=== PATIENT | female | born 1980 | race Two or more races ===

== ENCOUNTER 2016-12-01 10:48 | Emergency (ER) | payer MEDICAID ==
--- NOTE | 2016-12-01 11:04 | EDPHY ---
H & P Stated Complaint: rlq/r flank pain x 1 week worse today/nausea Time Seen by Provider: 12/01/16 10:56 HPI/ROS: CHIEF COMPLAINT: Right lower abdominal and right pelvic pain x1 week HISTORY OF PRESENT ILLNESS: 35-year-old female with remote history of left ovarian torsion and oophorectomy 7 years ago in [place], no other abdominal surgeries, complaining of 7 days of right lower abdominal pain , right lower back pain with associated nausea. Reproducible and exacerbated with palpation. No vomiting. No urinary abnormality such as dysuria, hematuria, increased frequency. No dyspareunia. No abnormal vaginal bleeding or discharge. No rash. No trauma. No dizziness. Last oral intake was a sausage biscuit at 9:00 a.m. today PRIMARY CARE PROVIDER: Reg Shannon REVIEW OF SYSTEMS: A ten point review of systems was performed and is negative with the exception of the items mentioned in the HPI PAST MEDICAL & SURGICAL HISTORY: 2009 left ovarian torsion with oophorectomy [place] SOCIAL HISTORY: nonsmoker PHYSICAL EXAM (Prior to examination, patient consented to physical exam, hands were washed and my usual and customary physical exam procedures followed) 1) GENERAL: Well-developed, well-nourished, alert and oriented. Appears uncomfortable 2) HEAD: Normocephalic, atraumatic 3) HEENT: Pupils equal, round, reactive to light bilaterally. Sclera anicteric. Dry mucous membranes 4) NECK: Full range of motion, no meningeal signs. 5) LUNGS: Clear auscultation bilaterally 6) HEART: Regular rate and rhythm, no murmur, no heave, no gallop. 7) ABDOMEN: guarding right lower quadrant, positive McBurney's, negative Kilgore' s, negative Rovsing's, 8) MUSCULOSKELETAL: No peripheral edema or discoloration. 9) BACK: No CVA tenderness. 10) SKIN: No rash, no petechiae. DIFFERENTIAL DIAGNOSIS: My differential diagnosis includes, but is not limited to, acute appendicitis, acute cholecystitis, bowel obstruction, acute pancreatitis, ovarian torsion, ectopic , gastritis and urinary tract infection. The patient understands that this diagnosis is provisional and can never be 100% accurate. This is a partial list of diagnoses considered. These considerations are based on history, physical exam, past history and reassessment. - Personal History LMP (Females 10-55): 8-14 Days Ago Current Tetanus/Diphtheria Vaccine: No - Medical/Surgical History Hx Asthma: No Hx Chronic Respiratory Disease: No Hx Diabetes: No Hx Cardiac Disease: No Hx Renal Disease: No Hx Cirrhosis: No Hx Alcoholism: No Hx HIV/AIDS: No Hx Splenectomy or Spleen Trauma: No Other PMH: l oopherectomy - Social History Smoking Status: Current every day smoker Constitutional: Initial Vital Signs Temperature (C) 36.4 C 12/01/16 10:52 Heart Rate 80 12/01/16 10:52 Respiratory Rate 17 12/01/16 10:52 Blood Pressure 98/78 L 12/01/16 10:52 O2 Sat (%) 96 12/01/16 10:52 O2 Delivery Mode Room Air Allergies/Adverse Reactions: No Known Allergies Allergy (Unverified 12/01/16 10:51) Home Medications: Medication Instructions Recorded Citalopram 12/01/16 Hydrocodone/APAP 5/325 [[place] 1 tab PO Q6 PRN #5 tab 12/01/16 5/325 (RX)] Ondansetron Odt [Zofran Odt] 4 mg PO Q4PRN PRN #10 tab 12/01/16 Medical Decision Making - Diagnostics Imaging: Imaging Impressions Pelvic/Renal Ultrasound 12/01/16 11:01 Impression: 1. Tiny cyst along the margin of the endometrial stripe posteriorly that could represent a small polyp or focus of adenomyosis. The uterus is otherwise normal in appearance. 2. Normal-appearing right ovary with small follicles and normal color-flow Doppler pattern. 3. Negative ultrasound of the right lower quadrant. However, the appendix was not positively identified. Findings were discussed by telephone with Flako Cantu PA-C at 1227 hrs. Abdomen Ultrasound 12/01/16 11:02 Impression: 1. Tiny cyst along the margin of the endometrial stripe posteriorly that could represent a small polyp or focus of adenomyosis. The uterus is otherwise normal in appearance. 2. Normal-appearing right ovary with small follicles and normal color-flow Doppler pattern. 3. Negative ultrasound of the right lower quadrant. However, the appendix was not positively identified. Findings were discussed by telephone with Flako Cantu PA-C at [address] 12/01/16 12:36 Impression: 1. No acute findings in the abdomen or pelvis. 2. Degenerative changes sacroiliac joints. 3. Additional findings as above. Findings discussed with Da Cantu PA-C, on 12/01/2016 at 1308 hours. Images reviewed by myself ED Course/Re-evaluation: 11:08 a.m.: Patient will be given IV fluids for volume depletion and further evaluated. 12:35 p.m.: Patient re-evaluated. Discussed her imaging studies showing normal flow to the right ovary. Nonvisualized appendix. Re-evaluated the patient she remains focally tender McBurney's point. Plan will be CT imaging. Indications risks benefits discussed with patient she verbalizes consent. 1:30 p.m.: Re-evaluation, she is resting comfortably. She remains tender at McBurney's point however appears significantly improved. We discussed her imaging showing normal appearing appendix. Discussed possibility of early appendicitis. At this time I think she can be discharged however recommended 12 hour recheck in the emergency department. She is agreeable with this plan. Usual customary abdominal precautions instructions provided. Discussed case with Dr Jon in ER. - Data Points Laboratory Results: Laboratory Results 12/01/16 11:11 12/01/16 11:11 12/01/16 12/01/16 12/01/16 12:35 11:11 11:11 WBC RBC Hgb Hct MCV MCH MCHC RDW Plt Count MPV Neut % (Auto) Lymph % (Auto) [place] % (Auto) Eos % (Auto) Baso % (Auto) Nucleat RBC Rel Count Absolute Neuts (auto) Absolute Lymphs (auto) Absolute Monos (auto) Absolute Eos (auto) Absolute Basos (auto) Absolute Nucleated RBC Immature Gran % Immature Gran # Sodium 140 mEq/L mEq/L (134-144) Potassium 4.5 mEq/L mEq/L (3.5-5.2) Chloride 105 mEq/L mEq/L (97-110) Carbon Dioxide 22 mEq/l mEq/l (22-31) Anion Gap 13 mEq/L mEq/L (8-16) BUN 17 mg/dL mg/dL (7-23) Creatinine 0.7 mg/dL mg/dL (0.6-1.0) Estimated GFR > 60 Glucose 88 mg/dL mg/dL (70-100) Calcium 9.8 mg/dL mg/dL (8.5-10.4) Total Bilirubin 0.6 mg/dL mg/dL (0.1-1.4) Conjugated Bilirubin 0.4 mg/dL mg/dL (0.0-0.5) Unconjugated Bilirubin 0.2 mg/dL mg/dL (0.0-1.1) AST 29 IU/L IU/L (14-46) ALT 34 IU/L IU/L (9-52) Alkaline Phosphatase 58 IU/L IU/L (38-126) Total Protein 8.4 g/dL H g/dL (6.3-8.2) Albumin 4.8 g/dL g/dL (3.5-5.0) Lipase 117.0 IU/L IU/L (23-300) Beta HCG, Qual NEGATIVE Urine Color YELLOW Urine Appearance CLEAR Urine pH 7.0 (5.0-7.5) Ur Specific [place] 1.019 (1.002-1.030) Urine Protein NEGATIVE (NEGATIVE) Urine Ketones NEGATIVE (NEGATIVE) Urine Blood 2+ H (NEGATIVE) Urine Nitrate NEGATIVE (NEGATIVE) Urine Bilirubin NEGATIVE (NEGATIVE) Urine Urobilinogen NEGATIVE EU EU (0.2-1.0) Ur Leukocyte Esterase NEGATIVE (NEGATIVE) Urine RBC 15-25 /hpf H /hpf (0-3) Urine WBC 1-3 /hpf /hpf (0-3) Ur Epithelial Cells TRACE /lpf /lpf (NONE-1+) Urine Mucus TRACE /lpf /lpf (NONE-1+) Urine Glucose NEGATIVE (NEGATIVE) 12/01/16 11:11 WBC 6.29 10^3/uL 10^3/uL (3.80-9.50) RBC 4.87 10^6/uL 10^6/uL (4.18-5.33) Hgb 13.6 g/dL g/dL (12.6-16.3) Hct 41.0 % % (38.0-47.0) MCV 84.2 fL fL (81.5-99.8) MCH 27.9 pg pg (27.9-34.1) MCHC 33.2 g/dL g/dL (32.4-36.7) RDW 15.5 % H % (11.5-15.2) Plt Count 262 10^3/uL 10^3/uL (150-400) MPV 11.7 fL fL (8.7-11.7) Neut % (Auto) 57.5 % % (39.3-74.2) Lymph % (Auto) 32.8 % % (15.0-45.0) [place] % (Auto) 6.5 % % (4.5-13.0) Eos % (Auto) 2.4 % % (0.6-7.6) Baso % (Auto) 0.5 % % (0.3-1.7) Nucleat RBC Rel Count 0.0 % % (0.0-0.2) Absolute Neuts (auto) 3.62 10^3/uL 10^3/uL (1.70-6.50) Absolute Lymphs (auto) 2.06 10^3/uL 10^3/uL (1.00-3.00) Absolute Monos (auto) 0.41 10^3/uL 10^3/uL (0.30-0.80) Absolute Eos (auto) 0.15 10^3/uL 10^3/uL (0.03-0.40) Absolute Basos (auto) 0.03 10^3/uL 10^3/uL (0.02-0.10) Absolute Nucleated RBC 0.00 10^3/uL 10^3/uL (0-0.01) Immature Gran % 0.3 % % (0.0-1.1) Immature Gran # 0.02 10^3/uL 10^3/uL (0.00-0.10) Sodium Potassium Chloride Carbon Dioxide Anion Gap BUN Creatinine Estimated GFR Glucose Calcium Total Bilirubin Conjugated Bilirubin Unconjugated Bilirubin AST ALT Alkaline Phosphatase Total Protein Albumin Lipase Beta HCG, Qual Urine Color Urine Appearance Urine pH Ur Specific [place] Urine Protein Urine Ketones Urine Blood Urine Nitrate Urine Bilirubin Urine Urobilinogen Ur Leukocyte Esterase Urine RBC Urine WBC Ur Epithelial Cells Urine Mucus Urine Glucose Medications Given: Discontinued Medications Sodium Chloride (Ns) 1,000 mls @ 0 mls/hr IV ONCE ONE PRN Reason: Wide Open Stop: 12/01/16 11:08 Last Admin: 12/01/16 11:30 Dose: 1,000 mls Ketorolac Tromethamine (Toradol) 30 mg IVP EDNOW ONE Stop: 12/01/16 11:08 Last Admin: 12/01/16 11:59 Dose: 30 mg Ondansetron HCl (Zofran) 4 mg IVP EDNOW ONE Stop: 12/01/16 11:08 Last Admin: 12/01/16 11:59 Dose: 4 mg Departure - Departure Disposition: Home, Routine, Self-Care Clinical Impression: Abdominal pain Qualifiers: Abdominal location: right lower quadrant Qualified Code(s): R10.31 - Right lower quadrant pain Condition: Good Instructions: Acute Abdominal Pain (ED) Additional Instructions: Seek immediate medical attention if you develop new or worsening symptoms, if you develop fevers, chills, inability to tolerate oral intake or any other symptoms that concerns you. Recommend you for return to the emergency department in 12 hours for a recheck. Return to the ER sooner if you develop new or worsening symptoms. Referrals: return, to the ER in 12 hours for a recheck [Other] - As per Instructions Prescriptions: Hydrocodone/APAP 5/325 [[place] 5/325 (RX)] 1 tab PO Q6 PRN #5 tab PRN Reason: Pain, Severe Ondansetron Odt [Zofran Odt] 4 mg PO Q4PRN PRN #10 tab PRN Reason: Nausea
[2016-12-01] MEDS ORDERED: KETOROLAC 30 MG/1 ML SDV IVP ONE (11:07)
[2016-12-01] MEDS ORDERED: NS 1,000 ML IV ONE (11:07)
[2016-12-01] MEDS ORDERED: ONDANSETRON 4 MG/2 ML VIAL IVP ONE (11:07)
[2016-12-01 11:23] LABS: % IMMATURE GRANULYOCYTES 0.3 % (0.0-1.1); ABSOLUTE IMMATURE GRANULOCYTES 0.02 10^3/uL (0.00-0.10); ADD DIFF? NO; ADD MORPH? NO; ADD SCAN? NO; ATYPICAL LYMPHOCYTE FLAG 10 (0-99); FRAGMENT RBC FLAG 0 (0-99); HEMOGLOBIN 13.6 g/dL (12.6-16.3); LEFT SHIFT FLG 0 (0-99); LIPEMIA HEMOLYSIS FLAG 80 (0-99); MEAN CELL HEMOGLOBIN 27.9 pg (27.9-34.1); MEAN CELL HEMOGLOBIN CONCENTR. 33.2 g/dL (32.4-36.7); MEAN CELL VOLUME 84.2 fL (81.5-99.8); MEAN PLATELET VOLUME 11.7 fL (8.7-11.7); PLATELET CLUMPS FLAG 0 (0-99); PLATELET COUNT 262 10^3/uL (150-400); RED BLOOD CELL COUNT 4.87 10^6/uL (4.18-5.33); RED CELL DISTRIBUTION WIDTH 15.5 % (11.5-15.2)
[2016-12-01 11:34] LABS: ALANINE AMINOTRANSFERASE 34 IU/L (9-52); ALBUMIN 4.8 g/dL (3.5-5.0); ALKALINE PHOSPHATASE 58 IU/L (38-126); ANION GAP 13 mEq/L (8-16); ASPARTATE AMINOTRANSFERASE 29 IU/L (14-46); BILIRUBIN,TOTAL 0.6 mg/dL (0.1-1.4); BILIRUBIN-CONJUGATED 0.4 mg/dL (0.0-0.5); BILIRUBIN-UNCONJUGATED 0.2 mg/dL (0.0-1.1); CALCIUM 9.8 mg/dL (8.5-10.4); CARBON DIOXIDE 22 mEq/l (22-31); CHLORIDE 105 mEq/L (97-110); CREATININE 0.7 mg/dL (0.6-1.0); GLOMERULAR FILTRATION RATE > 60; GLUCOSE 88 mg/dL (70-100); POTASSIUM 4.5 mEq/L (3.5-5.2); SODIUM 140 mEq/L (134-144); TOTAL PROTEIN 8.4 g/dL (6.3-8.2)
[2016-12-01] MEDS ORDERED: IOPAMIDOL (ISOVUE-300) 100 ML BTL IV ONE (12:43)
[2016-12-01 12:45] LABS: COLOR YELLOW; LEUKOCYTE ESTERASE,URINE NEGATIVE (NEGATIVE); NITRITE,URINE NEGATIVE (NEGATIVE)
[2016-12-01 12:48] LABS: MUCUS TRACE /lpf (NONE-1+); RBC,URINE 15-25 /hpf (0-3)
[2016-12-01 13:24] VITALS: RESP 16; O2SAT 98
[2016-12-01 14:01] VITALS: BP 104/72; PULSE 76; TEMP 97.7
== END 2016-12-01 14:01 | disposition home or self-care (01) ==
DX: R10.31 Right lower quadrant pain (principal); F17.200 Nicotine dependence, unspecified, uncomplicated
CPT/HCPCS: 96374; J1885; J2405; Q9967

== ENCOUNTER 2016-12-05 11:28 | Emergency (ER) | payer MEDICAID ==
[2016-12-05 11:39] VITALS: RESP 18; TEMP 98.1
[2016-12-05 12:17] LABS: % IMMATURE GRANULYOCYTES 0.2 % (0.0-1.1); ABSOLUTE IMMATURE GRANULOCYTES 0.01 10^3/uL (0.00-0.10); ADD DIFF? NO; ADD MORPH? NO; ADD SCAN? NO; ATYPICAL LYMPHOCYTE FLAG 10 (0-99); FRAGMENT RBC FLAG 0 (0-99); HEMATOCRIT 41.9 % (38.0-47.0); HEMOGLOBIN 13.6 g/dL (12.6-16.3); LEFT SHIFT FLG 0 (0-99); LIPEMIA HEMOLYSIS FLAG 80 (0-99); MEAN CELL HEMOGLOBIN 27.3 pg (27.9-34.1); MEAN CELL HEMOGLOBIN CONCENTR. 32.5 g/dL (32.4-36.7); MEAN CELL VOLUME 84.1 fL (81.5-99.8); MEAN PLATELET VOLUME 11.8 fL (8.7-11.7); PLATELET CLUMPS FLAG 0 (0-99); PLATELET COUNT 262 10^3/uL (150-400); RED BLOOD CELL COUNT 4.98 10^6/uL (4.18-5.33); RED CELL DISTRIBUTION WIDTH 15.2 % (11.5-15.2)
[2016-12-05 12:28] LABS: ALANINE AMINOTRANSFERASE 48 IU/L (9-52); ALBUMIN 4.9 g/dL (3.5-5.0); ALKALINE PHOSPHATASE 66 IU/L (38-126); ANION GAP 11 mEq/L (8-16); ASPARTATE AMINOTRANSFERASE 37 IU/L (14-46); BILIRUBIN,TOTAL 0.6 mg/dL (0.1-1.4); BILIRUBIN-CONJUGATED 0.5 mg/dL (0.0-0.5); BILIRUBIN-UNCONJUGATED 0.1 mg/dL (0.0-1.1); CALCIUM 9.9 mg/dL (8.5-10.4); CARBON DIOXIDE 21 mEq/l (22-31); CHLORIDE 107 mEq/L (97-110); CREATININE 0.7 mg/dL (0.6-1.0); GLOMERULAR FILTRATION RATE > 60; GLUCOSE 88 mg/dL (70-100); POTASSIUM 4.7 mEq/L (3.5-5.2); SODIUM 139 mEq/L (134-144); TOTAL PROTEIN 8.2 g/dL (6.3-8.2)
[2016-12-05] MEDS ORDERED: NS 1,000 ML IV ONE (12:35)
[2016-12-05] MEDS ORDERED: ONDANSETRON 4 MG/2 ML VIAL IVP ONE (12:35)
[2016-12-05] MEDS ORDERED: KETOROLAC 30 MG/1 ML SDV IVP ONE (12:35)
--- NOTE | 2016-12-05 12:38 | EDPHY ---
H & P Time Seen by Provider: 12/05/16 11:40 HPI/ROS: CHIEF COMPLAINT: Abdominal pain, vomiting HISTORY OF PRESENT ILLNESS: 35-year-old female presents to the emergency department with right lower quadrant abdominal pain that has been persistent since Sunday. She was seen in the emergency department on Sunday, December 01, 2016 , with right lower quadrant abdominal pain. She had a pelvic ultrasound and a limited abdominal ultrasound that was fairly unremarkable. She has CT scan of the abdomen and pelvis which revealed a normal appendix. Afebrile. She however has felt very sweaty and nauseous and this morning she began vomiting. No urinary symptoms. Last menstrual period was 2 and half weeks ago and she denies . She has had a previous tubal ligation. No back pain. REVIEW OF SYSTEMS: Constitutional: No fever, no chills. Eyes: No double or blurry vision. ENT: No sore throat. Respiratory: No cough, no shortness of breath. Cardiac: No chest pain. Gastrointestinal: Abdominal pain as above. No vomiting or diarrhea Genitourinary: No dysuria. Musculoskeletal: No neck or back pain. Skin: No rashes. Neurological: No headache. Past Medical/Surgical History: Tubal ligation, left ovary removal Social History: and lives in [place]. She moved here recently from [place] Smoking Status: Current every day smoker Physical Exam: General Appearance: Alert, no distress. Afebrile. No apparent distress. Eyes: Pupils equal and round. Extraocular motions are all intact. ENT: Mouth: Mucous membranes moist. Respiratory: No wheezing, rhonchi, or rales, lungs are clear to auscultation. Cardiovascular: Regular rate and rhythm. Gastrointestinal: Abdomen is soft. Tenderness with palpation especially the right lower quadrant as well as in the right upper quadrant. There is no rebound, guarding or masses noted. No CVA tenderness bilaterally. Neurological: Alert and oriented x 3, cranial nerves II through XII grossly intact Skin: Warm and dry, no rashes. Musculoskeletal: Nontender to palpate along the cervical, thoracic or lumbar spine. Neck is supple. Extremities: Full range of motion and no peripheral edema. Psychiatric: Patient is oriented X 3, there is no agitation. Constitutional: Initial Vital Signs Temperature (C) 36.7 C 12/05/16 11:37 Heart Rate 65 12/05/16 11:37 Respiratory Rate 18 12/05/16 11:37 Blood Pressure 92/59 L 12/05/16 11:37 O2 Sat (%) 97 12/05/16 11:37 O2 Delivery Mode Room Air Allergies/Adverse Reactions: No Known Allergies Allergy (Verified 12/05/16 11:35) Home Medications: Medication Instructions Recorded Citalopram 12/01/16 Hydrocodone/APAP 5/325 [[place] 1 tab PO Q6 PRN #5 tab 12/01/16 5/325 (RX)] Ondansetron Odt [Zofran Odt] 4 mg PO Q4PRN PRN #10 tab 12/01/16 Medical Decision Making - Diagnostics Imaging: Imaging Impressions Abdomen/Pelvis Ultrasound 12/05/16 13:57 Impression: 1. Normal renal ultrasound 2. Normal-appearing bladder. These findings were discussed by telephone with Brit Bell PA-C at 1547 hrs. ED Course/Re-evaluation: 35-year-old female presents to the emergency department with right-sided abdominal pain. The patient was seen in the emergency department 4 days ago and had a normal pelvic ultrasound and abdominal ultrasound. Normal appearing appendix noted on CT scan. The patient returns with persisting pain although it has improved. Laboratory studies reveal normal white blood cell count. Chemistries including liver function tests and lipase are all within normal limits. Urinalysis reveals 2+ blood 10-15 red blood cells noted on microscopic exam. Reviewing her laboratory studies from her previous visit reveals hematuria in her urine from the specimen on Sunday as well. Her last menstrual period was 2 and half weeks ago and the patient is not . The case was discussed with Dr. Denise Mckeon. I do not think repeat CT imaging of the abdomen and pelvis is indicated since they saw a normal appendix. The patient's pain is better although still persisting. I did discuss the pros and cons of CT imaging of her abdomen and pelvis including radiation exposure and the patient declined CT scan. The patient was given 30 mg of Toradol IV, 4 mg of Zofran IV with some relief. Patient was then given 0.5 mg of Dilaudid IV. Renal ultrasound is pending. Renal ultrasound is normal. The patient was re-evaluated at 3:50 p.m. and she is feeling better. She is comfortable being discharged home. She does not want to repeat CT scan. She is aware that she still has the right follicular cyst. Since she was given IV Toradol in the emergency department she was advised not to take additional ibuprofen tonight. She was instructed to return if she developed recurring abdominal pain or if she felt worse in any way. Differential Diagnosis: Including but not limited to acute appendicitis, ovarian cyst, ovarian torsion, cholecystitis, cholelithiasis, peptic ulcer disease, GERD, urinary tract infection, pyelonephritis - Data Points Laboratory Results: Laboratory Results 12/05/16 11:45 12/05/16 11:45 12/05/16 12/05/16 12/05/16 12:00 11:45 11:45 WBC RBC Hgb Hct MCV MCH MCHC RDW Plt Count MPV Neut % (Auto) Lymph % (Auto) [place] % (Auto) Eos % (Auto) Baso % (Auto) Nucleat RBC Rel Count Absolute Neuts (auto) Absolute Lymphs (auto) Absolute Monos (auto) Absolute Eos (auto) Absolute Basos (auto) Absolute Nucleated RBC Immature Gran % Immature Gran # Sodium 139 mEq/L mEq/L (134-144) Potassium 4.7 mEq/L mEq/L (3.5-5.2) Chloride 107 mEq/L mEq/L (97-110) Carbon Dioxide 21 mEq/l L mEq/l (22-31) Anion Gap 11 mEq/L mEq/L (8-16) BUN 17 mg/dL mg/dL (7-23) Creatinine 0.7 mg/dL mg/dL (0.6-1.0) Estimated GFR > 60 Glucose 88 mg/dL mg/dL (70-100) Calcium 9.9 mg/dL mg/dL (8.5-10.4) Total Bilirubin 0.6 mg/dL mg/dL (0.1-1.4) Conjugated Bilirubin 0.5 mg/dL mg/dL (0.0-0.5) Unconjugated Bilirubin 0.1 mg/dL mg/dL (0.0-1.1) AST 37 IU/L IU/L (14-46) ALT 48 IU/L IU/L (9-52) Alkaline Phosphatase 66 IU/L IU/L (38-126) Total Protein 8.2 g/dL g/dL (6.3-8.2) Albumin 4.9 g/dL g/dL (3.5-5.0) Lipase 92.0 IU/L IU/L (23-300) Beta HCG, Qual NEGATIVE Urine Color PALE YELLOW Urine Appearance CLEAR Urine pH 6.0 (5.0-7.5) Ur Specific [place] 1.012 (1.002-1.030) Urine Protein NEGATIVE (NEGATIVE) Urine Ketones NEGATIVE (NEGATIVE) Urine Blood 2+ H (NEGATIVE) Urine Nitrate NEGATIVE (NEGATIVE) Urine Bilirubin NEGATIVE (NEGATIVE) Urine Urobilinogen NEGATIVE EU EU (0.2-1.0) Ur Leukocyte Esterase NEGATIVE (NEGATIVE) Urine RBC 5-10 /hpf H /hpf (0-3) Urine WBC 1-3 /hpf /hpf (0-3) Ur Epithelial Cells TRACE /lpf /lpf (NONE-1+) Urine Glucose NEGATIVE (NEGATIVE) 12/05/16 11:45 WBC 5.93 10^3/uL 10^3/uL (3.80-9.50) RBC 4.98 10^6/uL 10^6/uL (4.18-5.33) Hgb 13.6 g/dL g/dL (12.6-16.3) Hct 41.9 % % (38.0-47.0) MCV 84.1 fL fL (81.5-99.8) MCH 27.3 pg L pg (27.9-34.1) MCHC 32.5 g/dL g/dL (32.4-36.7) RDW 15.2 % % (11.5-15.2) Plt Count 262 10^3/uL 10^3/uL (150-400) MPV 11.8 fL H fL (8.7-11.7) Neut % (Auto) 58.3 % % (39.3-74.2) Lymph % (Auto) 33.4 % % (15.0-45.0) [place] % (Auto) 5.4 % % (4.5-13.0) Eos % (Auto) 2.0 % % (0.6-7.6) Baso % (Auto) 0.7 % % (0.3-1.7) Nucleat RBC Rel Count 0.0 % % (0.0-0.2) Absolute Neuts (auto) 3.46 10^3/uL 10^3/uL (1.70-6.50) Absolute Lymphs (auto) 1.98 10^3/uL 10^3/uL (1.00-3.00) Absolute Monos (auto) 0.32 10^3/uL 10^3/uL (0.30-0.80) Absolute Eos (auto) 0.12 10^3/uL 10^3/uL (0.03-0.40) Absolute Basos (auto) 0.04 10^3/uL 10^3/uL (0.02-0.10) Absolute Nucleated RBC 0.00 10^3/uL 10^3/uL (0-0.01) Immature Gran % 0.2 % % (0.0-1.1) Immature Gran # 0.01 10^3/uL 10^3/uL (0.00-0.10) Sodium Potassium Chloride Carbon Dioxide Anion Gap BUN Creatinine Estimated GFR Glucose Calcium Total Bilirubin Conjugated Bilirubin Unconjugated Bilirubin AST ALT Alkaline Phosphatase Total Protein Albumin Lipase Beta HCG, Qual Urine Color Urine Appearance Urine pH Ur Specific [place] Urine Protein Urine Ketones Urine Blood Urine Nitrate Urine Bilirubin Urine Urobilinogen Ur Leukocyte Esterase Urine RBC Urine WBC Ur Epithelial Cells Urine Glucose Medications Given: Discontinued Medications Hydromorphone HCl (Dilaudid) 0.5 mg IVP EDNOW ONE Stop: 12/05/16 13:58 Last Admin: 12/05/16 14:04 Dose: 0.5 mg Sodium Chloride (Ns) 1,000 mls @ 0 mls/hr IV ONCE ONE PRN Reason: Wide Open Stop: 12/05/16 12:36 Last Admin: 12/05/16 12:49 Dose: 1,000 mls Ketorolac Tromethamine (Toradol) 30 mg IVP EDNOW ONE Stop: 12/05/16 12:36 Last Admin: 12/05/16 12:48 Dose: 30 mg Ondansetron HCl (Zofran) 4 mg IVP EDNOW ONE Stop: 12/05/16 12:36 Last Admin: 12/05/16 12:49 Dose: 4 mg Departure - Departure Clinical Impression: Abdominal pain Qualifiers: Abdominal location: right lower quadrant Qualified Code(s): R10.31 - Right lower quadrant pain Ovarian cyst Qualifiers: Laterality: right Qualified Code(s): N83.201 - Unspecified ovarian cyst, right side Condition: Good Instructions: Acute Abdominal Pain (ED) Additional Instructions: Abdominal Pain: Return to the Emergency Department immediately for increasing pain, fever, vomiting, or if not completely better in 8-12 hours. Ibuprofen 600mg every 8 hours for pain as directed. You were given Toradol in the emergency department so you should not take any additional ibuprofen tonight. Follow-up with OBGYN as discussed. Referrals: [facility] [Outside] - As per Instructions Paty Carroll DO [Doctor of Osteopathy] - As per Instructions (OBGYN on-call)
[2016-12-05 12:40] LABS: COLOR PALE YELLOW; LEUKOCYTE ESTERASE,URINE NEGATIVE (NEGATIVE); NITRITE,URINE NEGATIVE (NEGATIVE)
[2016-12-05] MEDS ORDERED: HYDROmorphONE/DILAUDID 1 MG/ML SYR IVP ONE (13:57)
[2016-12-05 16:01] VITALS: BP 117/51; PULSE 57; O2SAT 98
== END 2016-12-05 16:01 | disposition home or self-care (01) ==
DX: N83.201 Unspecified ovarian cyst, right side (principal); F17.200 Nicotine dependence, unspecified, uncomplicated
CPT/HCPCS: 96374; J1170; J1885; J2405